=== PATIENT | male | born 1970 | race Caucasian/White ===

== ENCOUNTER 2023-07-01 15:14 | Emergency (ER) | payer OTHER, SELFPAY ==
[2023-07-01 15:15] VITALS: BP 130/91; PULSE 86; RESP 15; TEMP 36.4; O2SAT 97; BMI 22.8
--- NOTE | 2023-07-01 17:09 | EX.ED.GENINJ ---
HPI History of Present Illness Chief Complaint: Laceration Detail of Chief Complaint: Forehead left side Informant: patient Onset/Context/Timing Onset: Hours Mechanism/Context: Blunt Injury Location of pain/injuries: - (Left side of forehead) Quality of Pain: - (None presently) Location: Forehead Current Severity: Gone Maximum Severity: Mild Worsened by: Initial injury Relieved by: Not applicable Associated Symptoms Associated Symptoms: Negative for Parasthesias, Weakness, Loss of function, Inability to ambulate, Loss of consciousness or Amnesia Narrative Narrative: Patient is [id number] male who presents with laceration to the left side of his forehead. This occurred at work. Struck his head on a piece of metal. He may have been dazed for 1 second. There is no loss of conscious. Is not amnestic. He is on no anticoagulant or antithrombotic. He denies head pain. He denies double vision blurred vision loss of vision. Eyes hollis ears decreased hearing. He has chronic neck pain due to C5 disc with thumb numbness. He has no other complaints. Tetanus Immunization: <5 years Prior similar symptoms: No Recent Illness/Hospitalization: No PFSH PFSH Medical History Chronic back pain Lumbar stenosis MRSA (methicillin resistant Staphylococcus aureus) infection Pinched nerve Sciatica Allergy/AdvReac Type Severity Reaction Status Date / Time No Known Allergies Allergy Verified 07/01/23 17:14 Surgical History History of tonsillectomy Social History Smoking Status: Former smoker ROS ROS ED Constitutional Constitutional ED: Denies chills or fever(s) Eyes Eyes: Denies blurry vision or change in vision ENT ENT ED: Reports other Details: Denies epistaxis. ; Denies ear pain, rhinorrhea or sore throat Cardiovascular Cardiovascular: Denies chest pain Respiratory/Chest Respiratory/Chest: Denies cough or dyspnea Gastrointestinal Gastrointestinal: Denies nausea or vomiting Integumentary Reports other Details: Forehead laceration Neurologic Neurologic: Denies headache(s), paresthesias or weakness Hematologic/Lymphatic Hematologic/Lymphatic: Denies easy bleeding or easy bruising EXAM Physical Exam Const Vital Signs: 07/01/23 15:15 Temperature 97.5 F L Temperature Source Temporal Pulse Rate 86 Respiratory Rate 15 Blood Pressure 130/91 H Blood Pressure Mean 104 Pulse Ox 97 Oxygen Delivery Method Room Air Positive well nourished and well developed General Appearance ED: well developed and NAD HEENT Reports TM's clear trauma and tenderness Nose: Negative for septum abnormal Tympanic Membrane ED: Yes TM's clear Eyes PERRL and EOMs intact bilaterally General Eye ED: Yes other Other Details: There is no subconjunctival hemorrhage. No evidence of entrapment. There is no hyperesthesia in foveal nerve. Neck full ROM Resp normal respiratory effort Cardio regular rhythm and S1 normal heart sound Extremity normal to inspection and full ROM Neuro oriented x3, CN's II-XII intact bilaterally and moves all extremities Psych mental status grossly normal and thought process normal Skin no rashes or lesions noted, skin turgor normal and no jaundice Skin Narrative: Forehead laceration PROC Procedures Other Procedures Procedure(s): Forehead laceration: Patient was prepped draped sterile manner. Wound was anesthetized by left supraorbital nerve block. A total of 2 cc of 1% lidocaine was used. After 5 minutes patient was assessed and had no sensation. The wound was irrigated with 150 cc of normal saline. Using 6-0 Ethilon simple interrupted sutures were placed. A total of 13 stitches was placed. Patient tolerated the procedure. Of note the laceration went down to the frontalis muscle but did not involve the frontalis muscle. MDM MDM MDM Narrative Medical decision making narrative: Per the [place] CT head rule and [place] rule imaging of the head is not indicated. Patient does not have any posterior midline pain not complaining of an neck pain therefore x-ray of the neck was not obtained. Patient's laceration will require repair. Please see procedure note Discharge Plan Triage Chief Complaint: Laceration ED Provider: Dar Webb Dx/Rx/DC Orders Clinical Impression: Laceration of forehead, Concussion without loss of consciousness, initial encounter Instructions: ED Concussion, ED Laceration, All Closures Primary Care Provider: Care Physician,No Primary Referrals: [facility] [Group of Physicians] - 5 Days for suture removal Care Physician,No Primary [Primary Care Provider] - Activity Restrictions/Additional Instructions: 1. Apply bacitracin ointment 3 times a day. Disposition Disposition: Home, Self Care
[2023-07-01] MEDS: Lidocaine 1% (20 ml mdv) 20 ML Vial INFILT (17:14)
[2023-07-01 18:34] VITALS: BP 125/65; PULSE 71; RESP 16; TEMP 37.1; O2SAT 100
== END 2023-07-01 18:35 | disposition home or self-care (01) ==
PROVIDERS: Emergency Provider Emergency Medicine; Visit Provider Emergency Medicine
DX: S01.81XA Laceration without foreign body of other part of head, initial encounter (principal); Z87.891 Personal history of nicotine dependence; S06.0X0A Concussion without loss of consciousness, initial encounter; W22.09XA Striking against other stationary object, initial encounter; Y99.0 Civilian activity done for income or pay; Y92.69 Other specified industrial and construction area as the place of occurrence of the external cause
CPT/HCPCS: 12002; 64999; 99284